=== PATIENT | female | born 1985 | race Caucasian/White ===

== ENCOUNTER 2018-06-22 16:40 | Emergency (ER) | payer BC ==
[2018-06-22 16:48] VITALS: BP 121/89
--- NOTE | 2018-06-22 17:08 | EDPHY ---
H & P Time Seen by Provider: 06/22/18 16:45 HPI/ROS: 33 yo F presents c/o stepped in [facility] and twisted her ankle while walking on a trail, went home, iced, and did ibuprofen, but still had pain with weight-bearing. Review of systems As per HPI General no fever no chills no weakness HEENT no eye pain no eye discharge. No eye redness, no sore throat Respiratory no cough, no shortness of breath Cardiac no chest pain, no peripheral edema GI no abdominal pain, no diarrhea, no constipation, no nausea, no vomiting no flank pain, no hematuria, no dysuria Musculoskeletal no myalgias, positive joint pain Heme no easy bruising, no easy bleeding Endo no polyuria, no polydipsia Skin no rashes, no pruritus Neuro no syncope, no dizziness, no headaches Psych is no suicidal ideation, no homicidal ideation Past Medical/Surgical History: Non contributory Social History: Denies alcohol or drug use Smoking Status: Never smoked Physical Exam: 33-year-old female Alert and oriented in no acute distress nontoxic appearance afebrile Atraumatic normocephalic Extraocular muscles intact, anicteric Neck is supple Lungs clear to auscultation no respiratory distress Heart regular rate and rhythm without murmur rub or gallop Abdomen normoactive bowel sounds Extremities no cyanosis clubbing or edema Ankle-positive swelling no ecchymosis positive tenderness to palpation at medial malleolus, no instability, sensation intact, good capillary refill, dorsalis pedis and posterior tibialis intact Constitutional: Initial Vital Signs Temperature (C) 37.2 C 06/22/18 16:44 Heart Rate 93 06/22/18 16:44 Respiratory Rate 16 06/22/18 16:44 Blood Pressure 121/89 H 06/22/18 16:44 O2 Sat (%) 97 06/22/18 16:44 O2 Delivery Mode Room Air Allergies/Adverse Reactions: Penicillins Allergy (Verified 06/22/18 16:50) Sulfa (Sulfonamide Antibiotics) Allergy (Verified 06/22/18 16:50) Home Medications: Medication Instructions Recorded Citalopram Hydrobromide [celeXA 10 06/22/18 MG] Klonopin 06/22/18 Jolly 28 Tablet 06/22/18 buPROPion [Wellbutrin 100mg (*)] 06/22/18 Medical Decision Making - Diagnostics Imaging Results: Imaging Impressions Ankle X-Ray 06/22/18 16:48 Impression: No acute osseous findings. ED Course/Re-evaluation: Patient seen and evaluated for left ankle pain X-ray Left ankle negative for fracture Impression Left ankle sprain Plan Ankle stirrup Rest, ice, elevation Ibuprofen as needed for pain Crutches-patient has her own crutches at home from a prior foot sprain Follow-up PCP as needed Differential Diagnosis: Differential diagnosis considered but not limited to: Ankle sprain, ankle fracture Departure - Departure Disposition: Home, Routine, Self-Care Clinical Impression: Moderate left ankle sprain Condition: Good Instructions: Ankle Sprain (DC), Ankle Stirrup Splint (ED) Referrals: May Long MD [Primary Care Provider] - As per Instructions
== END 2018-06-22 17:30 | disposition home or self-care (01) ==
LOC: CED 16:40
DX: S93.402A Sprain of unspecified ligament of left ankle, initial encounter (principal); W18.42XA Slipping, tripping and stumbling without falling due to stepping into hole or opening, initial encounter; Y93.01 Activity, walking, marching and hiking; Y92.828 Other wilderness area as the place of occurrence of the external cause
CPT/HCPCS: 73610-PO; L4350

== ENCOUNTER 2018-08-17 18:32 | Emergency (ER) | payer BC ==
[2018-08-17 18:40] VITALS: BP 147/95
--- NOTE | 2018-08-17 18:49 | EDPHY ---
H & P Stated Complaint: headache and sinus pressure started 2-3 days ago Time Seen by Provider: 08/17/18 18:44 HPI/ROS: 33 yo F presents complaining of sinus congestion and headache. She states she has a fullness in her face with pain in her frontal sinuses, her maxillary sinuses as well as or ethmoid sinuses. She states her headache is markedly worse with bending over. She has had ongoing nasal congestion however has been using a sinus rinse as well as fluticasone. She denies fevers or chills. She denies purulent drainage from her nose. No neck pain, no neck stiffness, no fevers or chills Review of systems As per HPI General no fever no chills no weakness HEENT no eye pain no eye discharge. No eye redness, no sore throat Respiratory no cough, no shortness of breath Cardiac no chest pain, no peripheral edema GI no abdominal pain, no diarrhea, no constipation, no nausea, no vomiting no flank pain, no hematuria, no dysuria Musculoskeletal no myalgias, no joint pain Heme no easy bruising, no easy bleeding Endo no polyuria, no polydipsia Skin no rashes, no pruritus Neuro no syncope, no dizziness, positive headaches Psych is no suicidal ideation, no homicidal ideation Source: Patient Exam Limitations: No limitations - Personal History LMP (Females 10-55): Extended Cycle BCP/Inj Current Tetanus Diphtheria and Acellular Pertussis (TDAP): Yes Tetanus Vaccine Date: 2017 - Medical/Surgical History Hx Asthma: No Hx Chronic Respiratory Disease: No Hx Diabetes: No Hx Cardiac Disease: No Hx Renal Disease: No Hx Cirrhosis: No Hx Alcoholism: No Hx HIV/AIDS: No Hx Splenectomy or Spleen Trauma: No Other PMH: depression - Family History Significant Family History: No pertinent family hx - Social History Smoking Status: Never smoked Alcohol Use: None Drug Use: None - Physical Exam Exam: 33-year-old female Alert and oriented nontoxic appearance, no acute distress afebrile Atraumatic normocephalic Face positive tenderness to percussion over frontal, maxillary sinuses bilaterally TMs bilaterally with effusion Extraocular muscles intact, anicteric Nares mild yellowish discharg, nasal turbinates swelling on the right e Oropharynx mild erythema no tonsillar swelling no exudate no uvular deviation, tolerating own secretions Neck supple no lymphadenopathy Lungs clear to auscultation bilaterally Heart regular rate and rhythm Abdomen normoactive bowel sounds soft nontender Extremities no cyanosis clubbing or edema Skin no rash Constitutional: Initial Vital Signs Temperature (C) 37.5 C 08/17/18 18:37 Heart Rate 73 08/17/18 18:37 Respiratory Rate 18 08/17/18 18:37 Blood Pressure 147/95 H 08/17/18 18:37 O2 Sat (%) 96 08/17/18 18:37 O2 Delivery Mode Room Air Allergies/Adverse Reactions: Penicillins Allergy (Verified 08/17/18 18:37) Sulfa (Sulfonamide Antibiotics) Allergy (Verified 08/17/18 18:37) Home Medications: Medication Instructions Recorded Citalopram Hydrobromide [celeXA 10 06/22/18 MG] Klonopin 06/22/18 Jolly 28 Tablet 06/22/18 buPROPion [Wellbutrin 100mg (*)] 06/22/18 Medical Decision Making ED Course/Re-evaluation: Patient seen and evaluated for sinus congestion with headache. Given acetaminophen 1 g p.o. Also given ondansetron 4 mg ODT Impression Acute sinusitis, likely viral Plan Decongestant Continue fluticasone, nasal rinse Acetaminophen as needed for pain every 6 hr Follow-up with primary care physician on as planned Return to emergency room for worsening pain, high fever or vomiting Differential Diagnosis: Differential diagnosis considered but not limited to: URI, nasal congestion, sinusitis - Data Points Medications Given: Discontinued Medications Acetaminophen (Tylenol) 1,000 mg PO EDNOW ONE Stop: 08/17/18 19:07 Last Admin: 08/17/18 19:10 Dose: 1,000 mg Ondansetron HCl (Zofran Odt) 4 mg PO EDNOW ONE Stop: 08/17/18 19:07 Last Admin: 08/17/18 19:10 Dose: 4 mg Ondansetron HCl (Zofran Odt 4 Mg Prepack#2) 1 btl TAKEHOME EDNOW ONE Stop: 08/17/18 19:17 Last Admin: 08/17/18 19:22 Dose: 1 btl Departure - Departure Disposition: Home, Routine, Self-Care Clinical Impression: Acute sinusitis Condition: Good Instructions: Sinusitis (ED) Additional Instructions: May take Zyrtec or the generic version for your congestion. Drink plenty of fluids. In addition to ibuprofen, you may take Acetaminophen (tylenol) , 2 extra strength every 4-6 hours as needed for headache Keep your appointment with your primary care provider this week Return if you have high fever , severe pain or vomiting. Referrals: May Long MD [Primary Care Provider] - As per Instructions
[2018-08-17] MEDS ORDERED: ACETAMINOPHEN 500 MG TAB PO ONE (19:06)
[2018-08-17] MEDS ORDERED: ONDANSETRON DISINTEGRATING 4 MG TAB PO ONE (19:06)
[2018-08-17] MEDS ORDERED: ONDANSETRON 4MG PREPACK#2 BTL TAKEHOME ONE (19:16)
== END 2018-08-17 19:25 | disposition home or self-care (01) ==
LOC: CED 18:32
DX: J01.90 Acute sinusitis, unspecified (principal)